=== PATIENT | female | born 1955 | race Hispanic/Latino ===

== ENCOUNTER → 2022-01-18 | Outpatient (CLI) | payer BC ==
[2022-01-18 10:11] LABS: CREATININE 0.7 mg/dL (0.5-1.5)
== END | disposition home or self-care (01) ==
LOC: LAB 08:40
PROVIDERS: ATTEND Otolaryngology Plastic Surgery within the Head & Neck
DX: H90.3 Sensorineural hearing loss, bilateral (principal)
CPT/HCPCS: 36415; 82565; 84520

== ENCOUNTER → 2022-01-27 | Outpatient (CLI) | payer BC, OTHER ==
[~2022-01-27] MED LIST: GADOTERATE MEGLUMINE 10 MMOL/20 ML VIAL IV ONE
== END | disposition home or self-care (01) ==
LOC: RAH 13:44
PROVIDERS: ATTEND Otolaryngology Plastic Surgery within the Head & Neck
DX: H90.3 Sensorineural hearing loss, bilateral (principal)
CPT/HCPCS: 70553; A9575